=== PATIENT | female | born 1950 | race American Indian/Alaskan Native ===

== ENCOUNTER 2021-09-23 18:23 | Emergency (ER) | payer MEDICARE ==
--- NOTE | 2021-09-23 18:29 | Emergency Department Report ---
ED Neuro Deficit HPI - General Stated Complaint: STROKE Time Seen by Provider: 09/23/21 18:23 - History of Present Illness Initial Comments: Patient was brought in by EMS for possible stroke alert. Patient was last seen by her son at 1300 hrs. She was found in the floor at 1730 hrs. EMS was called and the patient was transported here. They noted the patient was altered with aphasia as well as right hemiparesis. She was taken immediately to CT upon arrival. History is obtained primarily from EMS as the son is not present. There was no known injury. Once the son arrived, he does provide history. He had seen the patient and they had breakfast together around 10 or 11 this morning. She had gone back to her room because the heat is out in the house intermittently. She has been using an electric space heater. He spoke with her between 1313 30 hours. She was at baseline at that point. He went out for a walk. He came back again at 1730 and yelled for her. There was no response. He went and and found her at that time unresponsive on the floor. He actually states that she was responsive, just not normal. - Related Data Home Medications: Home Medications Medication Instructions Recorded Confirmed Last Taken Cholecalciferol Vit D3 [Vitamin D3 1,000 unit PO QDAY 09/23/21 09/23/21 Unknown 1,000 UNIT TAB] Metformin HCl [Metformin HCl ER] 750 mg PO BID 09/23/21 09/23/21 Unknown Pravastatin Sodium [Pravastatin] 40 mg PO QHS 09/23/21 09/23/21 Unknown Turmeric Root Extract [Turmeric] 1,000 mg PO QDAY 09/23/21 09/23/21 Unknown atenoloL [Tenormin] 50 mg PO DAILY 09/23/21 09/23/21 Unknown Allergies/Adverse Reactions: Allergies Allergy/AdvReac Type Severity Reaction Status Date / Time No Known Allergies Allergy Verified 09/23/21 19:18 ED Review of Systems ROS: Stated complaint: STROKE Other details as noted in HPI Comment: Unobtainable due to pts medical conditions (Dysarthria and aphasia) ED Past Medical Hx - Past Medical History Hx Hypertension: Yes - Family History Family history: other (Patient's mother of a stroke at 76) - Medications Home Medications: Home Medications Medication Instructions Recorded Confirmed Last Taken Type Cholecalciferol Vit D3 [Vitamin D3 1,000 unit PO QDAY 09/23/21 09/23/21 Unknown History 1,000 UNIT TAB] Metformin HCl [Metformin HCl ER] 750 mg PO BID 09/23/21 09/23/21 Unknown History Pravastatin Sodium [Pravastatin] 40 mg PO QHS 09/23/21 09/23/21 Unknown History Turmeric Root Extract [Turmeric] 1,000 mg PO QDAY 09/23/21 09/23/21 Unknown History atenoloL [Tenormin] 50 mg PO DAILY 09/23/21 09/23/21 Unknown History ED Neuro Physical Exam - General Limitations: Physical Limitation (Stroke), Other General appearance: alert, in no apparent distress, obese Suspected Stroke: Yes - Head Head exam: Present: atraumatic, other (Right facial droop) - Eye Eye exam: Present: normal appearance, EOMI. Absent: scleral icterus - ENT ENT exam: Present: mucous membranes dry, normal external ear exam - Neck Neck exam: Present: normal inspection. Absent: meningismus - Respiratory Respiratory exam: Present: normal lung sounds bilaterally. Absent: respiratory distress - Cardiovascular Cardiovascular Exam: Present: regular rate, normal rhythm - GI/Abdominal GI/Abdominal exam: Present: soft. Absent: distended, pulsatile mass - Extremities Exam Extremities exam: Present: normal capillary refill, pedal edema (2+) - Back Exam Back exam: Absent: CVA tenderness (R), CVA tenderness (L) - Neurological Exam Neurological exam: Present: alert, other (Acute stroke suspected) - NIHSS Assessment Interval: Baseline 1a. Level of Consciousness: alert/keenly responsive 1b. LOC Questions: aphasic 1c. LOC Commands: performs 1 task correctly 2. Best Gaze: partial gaze palsy 3. Visual: no visual loss 4. Facial Palsy: unilateral complete paralysis 5b. Motor Arm Right: no movement 5a. Motor Arm Left: no drift 6a. Motor Leg Left: no movement 6b. Motor Leg Right: no drift 7. Limb Ataxia: absent 8. Sensory: severe/total sensory loss 9. Best Language: mild/moderate aphasia 10. Dysarthria: mild/moderate dysarthria 11. Extinction/Inattention: no abnormality Total Score: 19 Stroke Severity: Moderate to Severe Stroke - Psychiatric Psychiatric exam: Present: normal mood - Skin Skin exam: Present: warm, dry ED Course Vital Signs 09/23/21 09/23/21 09/23/21 19:05 19:06 19:09 Temperature 98.7 F Pulse Rate 50 L 50 L Respiratory 15 13 16 Rate Blood Pressure 165/114 [Left] O2 Sat by Pulse 92 98 96 Oximetry - Reevaluation(s) Reevaluation #1: 09/23/21 18:20 EMS was met. Patient was taken urgently to CT. We are outside of any window for intravenous tPA. Patient would still meet criteria for intervention and clot retrieval. Teleneurology verbally reported to the nursing staff that they would discuss the case after the CT. Reevaluation #2: 09/23/21 18:50 CT scan was reviewed. Case was discussed with the neurologist. It was agreed that we should look at transfer for neuro intervention. Reevaluation #3: 09/23/21 19:46 Case was discussed with neurology at [facility]. They requested the images be sent to their PACS system. They will review the images and return call. Radiology was notified. Reevaluation #4: 09/23/21 20:37 Ultimately, patient was transferred to flight due to [facility]. - Lab Data Result diagrams: 09/23/21 18:44 09/23/21 18:44 Lab Results 09/23/21 09/23/21 09/23/21 Range/Units 18:44 18:44 18:44 WBC 11.2 H (4.5-11.0) K/mm3 RBC 3.87 (3.65-5.03) M/mm3 Hgb 11.0 (10.1-14.3) gm/dl Hct 34.3 (30.3-42.9) % MCV 89 (79-97) fl MCH 29 (28-32) pg MCHC 32 (30-34) % RDW 13.7 (13.2-15.2) % Plt Count 197 (140-440) K/mm3 Lymph % (Auto) 8.5 L (13.4-35.0) % [place] % (Auto) 7.8 H (0.0-7.3) % Eos % (Auto) 0.0 (0.0-4.3) % Baso % (Auto) 0.2 (0.0-1.8) % Lymph # (Auto) 0.9 L (1.2-5.4) K/mm3 [place] # (Auto) 0.8 (0.0-0.8) K/mm3 Eos # (Auto) 0.0 (0.0-0.4) K/mm3 Baso # (Auto) 0.0 (0.0-0.1) K/mm3 Seg Neutrophils % 83.5 H (40.0-70.0) % Seg Neutrophils # 9.1 H (1.8-7.7) K/mm3 PT 15.1 H (12.2-14.9) Sec. INR 1.07 (0.87-1.13) APTT 29.2 (24.2-36.6) Sec. Thrombin Time 16.9 (15.1-19.6) Sec. Sodium 137 (137-145) mmol/L Potassium 4.2 (3.6-5.0) mmol/L Chloride 103.8 (98-107) mmol/L Carbon Dioxide 18 L (22-30) mmol/L Anion Gap 19 mmol/L BUN 21 H (7-17) mg/dL Creatinine 1.7 H (0.6-1.2) mg/dL Estimated GFR 36 ml/min BUN/Creatinine Ratio 12 % Glucose 214 H (65-100) mg/dL POC Glucose (70-105) mg/dL Calcium 9.0 (8.4-10.2) mg/dL Troponin T 1.020 H* (0.00-0.029) ng/mL Triglycerides 90 (2-149) mg/dL Cholesterol 138 (50-199) mg/dL LDL Cholesterol Direct 80 (50-130) mg/dL HDL Cholesterol 51 (40-59) mg/dL Cholesterol/HDL Ratio 2.70 % 09/23/21 Range/Units 19:29 WBC (4.5-11.0) K/mm3 RBC (3.65-5.03) M/mm3 Hgb (10.1-14.3) gm/dl Hct (30.3-42.9) % MCV (79-97) fl MCH (28-32) pg MCHC (30-34) % RDW (13.2-15.2) % Plt Count (140-440) K/mm3 Lymph % (Auto) (13.4-35.0) % [place] % (Auto) (0.0-7.3) % Eos % (Auto) (0.0-4.3) % Baso % (Auto) (0.0-1.8) % Lymph # (Auto) (1.2-5.4) K/mm3 [place] # (Auto) (0.0-0.8) K/mm3 Eos # (Auto) (0.0-0.4) K/mm3 Baso # (Auto) (0.0-0.1) K/mm3 Seg Neutrophils % (40.0-70.0) % Seg Neutrophils # (1.8-7.7) K/mm3 PT (12.2-14.9) Sec. INR (0.87-1.13) APTT (24.2-36.6) Sec. Thrombin Time (15.1-19.6) Sec. Sodium (137-145) mmol/L Potassium (3.6-5.0) mmol/L Chloride (98-107) mmol/L Carbon Dioxide (22-30) mmol/L Anion Gap mmol/L BUN (7-17) mg/dL Creatinine (0.6-1.2) mg/dL Estimated GFR ml/min BUN/Creatinine Ratio % Glucose (65-100) mg/dL POC Glucose 185 H (70-105) mg/dL Calcium (8.4-10.2) mg/dL Troponin T (0.00-0.029) ng/mL Triglycerides (2-149) mg/dL Cholesterol (50-199) mg/dL LDL Cholesterol Direct (50-130) mg/dL HDL Cholesterol (40-59) mg/dL Cholesterol/HDL Ratio % - EKG Data -: EKG Interpreted by Ks EKG shows normal: sinus rhythm Rate: bradycardia 09/23/21 20:38 EKG shows a sinus bradycardia with normal intervals. There is no ST elevation to suggest STEMI. There is no ST depression suggestive of ischemia. - Radiology Data Radiology results: report reviewed - Medical Decision Making Patient presented as a stroke alert. She was out of any kind of window for thr ombolytic therapy but was within the window for consideration of intervention. We did transfer the patient for intervention. There was no evidence of bleed or tumor. There is no visible sign of trauma. Patient did not have any obvious metabolic derangement. Troponin was elevated which can be trended. She did not have EKG changes suggestive of STEMI. Patient did not have anemia or thrombocytopenia. She had evidence of an acute kidney injury and this can be trended as well. We do not know her baseline BUN and creatinine. This could be chronic and stable for the patient. Critical Care Time: Yes (55 minutes exclusive of all procedures) Critical care attestation.: If time is entered above; I have spent that time in minutes in the direct care of this critically ill patient, excluding procedure time. ED Disposition Clinical Impression: Left acute arterial ischemic stroke, MCA (middle cerebral artery), Elevated troponin, Renal insufficiency Disposition: INTERMEDIATE CARE FACILITY Is pt being admited?: No Condition: Stable Referrals: KATARZYNA FALCON [Other] - 3-5 Days
--- NOTE | 2021-09-23 18:54 | Consultation ---
History of Present Illness History of present illness: [facility] Consult Note # Demographics Consult Type: Acute Stroke Level 2 (4.5-24 hrs) Patient Location: Emergency Room First Name: Jael Last Name: Jc Age: 70 Gender: Female Facility: [facility] Time of Initial Page ( Time): 09/23/2021, 18:11 Time of Return Call ( Time): 09/23/2021, 18:11 # HPI History: 70 year-old female presents with aphasia and right-sided weakness. She was last known normal at 1300. # Scores Time of exam and NIHSS ( Time): 09/23/2021, 18:48 Level of Consciousness 1a: [2] = Not alert; requires strong or painful stim LOC Questions 1b: [2] = Answers neither correctly LOC Commands 1c: [2] = Performs neither correctly Best Gaze 2: [1] = Partial gaze palsy Visual 3: [0] = No visual loss Facial Palsy 4: [1] = Minor paralysis Motor Arm Left 5a: [3] = No effort against gravity Motor Arm Right 5b: [3] = No effort against gravity Motor Leg Left 6a: [4] = No movement Motor Leg Right 6b: [4] = No movement Limb Ataxia 7: [0] = Absent Sensory 8: [0] = Normal Best Language 9: [3] = Mute Dysarthria 10: [2] = Severe dysarthria Extinction and Inattention 11: [0] = No abnormality NIHSS Total: 27 # Exam Vitals: vital signs reviewed # Data Head CT: no bleed CTA Head: MCA occlusion # Assessment Impression: Ischemic Stroke (Acute) # Plan Thrombolytic/Intervention: IA Intervention Thrombolytic Exclusion: > 4.5 hours Labs: hemoglobin A1c lipid panel Imaging: (urgency: routine): MRI Brain without contrast Diagnostic Test: echo without bubble study Therapy/Evaluation: NPO until swallow evaluation PT/OT evaluation speech/swallow consultation Medication: aspirin 325 mg daily start statin with goal of LDL < 70 Other: permissive hypertension telemetry monitoring I have discussed my recommendations with the referring provider Disposition: admit
[2021-09-23 19:03] LABS: Hematocrit 34.3 % (30.3-42.9); Mean Corpuscular HGB Conc 32 % (30-34); Mean Corpuscular Volume 89 fl (79-97); Platelet Count 197 K/mm3 (140-440); Red Blood Count 3.87 M/mm3 (3.65-5.03); Red Cell Distribution Width 13.7 % (13.2-15.2)
--- NOTE | 2021-09-23 19:03 | Cat Scan Report ---
CT head/brain wo con INDICATION / CLINICAL INFORMATION: 70 years Female; Stroke symptoms. TECHNIQUE: Routine CT head without contrast. All CT scans at this location are performed using CT dos e reduction for ALARA by means of automated exposure control. COMPARISON: None. FINDINGS: BRAIN / INTRACRANIAL CONTENTS: The motion degrades the image quality. However, there is extensive cer ebral white matter disease most consistent with advanced microvascular angiopathy. However, there jo ann ears to be relative edema on the left which obscures the left ankle capsular region and concerning fo r developing infarct. Additionally, there is relative increased attenuation within the left MCA indic ative of associated thrombus. There is mild cerebral atrophy with associated prominence of the ventricular system. There is no dean s CT evidence of acute intracranial hemorrhage. ORBITS: No significant abnormality of visualized orbits. SINUSES / MASTOIDS: No significant abnormality in the visualized paranasal sinuses or mastoid air flor ls. CRANIOCERVICAL JUNCTION: No significant abnormality. ADDITIONAL FINDINGS: None. IMPRESSION: 1. The study is limited by motion. However, the findings are indicative of edema and evolving infarct within the left gangliocapsular region along with thrombus at within the visualized left MCA as deta iled above. 2. There is otherwise extensive microvascular angiopathy and mild cerebral atrophy. Signer Name: Jerrod Correa MD Signed: 09/23/2021 6:59 PM Workstation Name: [id number]
[2021-09-23 19:15] LABS: INR 1.07 (0.87-1.13)
[2021-09-23 19:16] LABS: Partial Thromboplastin Time 29.2 Sec. (24.2-36.6); Thrombin Time 16.9 Sec. (15.1-19.6)
--- NOTE | 2021-09-23 19:21 | Cat Scan Report ---
CT angio neck INDICATION / CLINICAL INFORMATION: 70 years Female; stroke sx. TECHNIQUE: Thin cut axial images obtained through the head during IV bolus contrast administration. S agittal, coronal, and 3 plane MIP reconstructions performed by the technologist. NASCET type criteria used evaluate stenoses. All CT scans at this location are performed using CT dose reduction for ALAR A by means of automated exposure control. COMPARISON: None available. FINDINGS: CAROTID ARTERIES: The motion and beam hardening significantly degrades the image quality. However, th ere is relative increased attenuation within the left cervical carotid arteries compared to the right carotid as well as the bilateral vertebral arteries. On review of the CTA head, there is note of occ lusion of the distal most cervical left ICA and left MCA any above findings at may reflect relative d ecreased flow within the left cervical carotid arteries with increased density and accumulation of co ntrast. There are not small foci of calcification at the carotid bifurcations without significant foc al stenosis. VERTEBRAL ARTERIES: The proximal vertebral arteries are also obscured by the degree of motion and susana m hardening. However, there is no clear CT evidence of significant focal stenosis. ARCH: There is calcification involving the arch vessels with mild, less than 50% stenosis of the prox imal left subclavian artery. ADDITIONAL FINDINGS: There is a small left pleural effusion. There is a well-circumscribed lesion wit hin the deep left parotid gland measuring 0.7 cm AP by 1.1 cm transverse in greatest dimensions. This finding is nonspecific though may reflect neoplastic process such as pleomorphic adenoma. IMPRESSION: There is relative increase density of contrast within the left cervical carotid arteries which appear s reflect decreased flow given the occlusion of the distal left intracranial ICA on the CTA head. The re are small foci of calcification within the carotid bifurcations without significant stenosis by NA SCET criteria. There is a 0.7 x 1.1 cm well-circumscribed lesion within the left parotid gland as described. Signer Name: Jerrod Correa MD Signed: 09/23/2021 7:16 PM Workstation Name: [id number]
--- NOTE | 2021-09-23 19:26 | Cat Scan Report ---
CT angio head INDICATION / CLINICAL INFORMATION: 70 years Female; stroke sx. TECHNIQUE: Thin cut axial images obtained through the head during IV bolus contrast administration. S agittal, coronal, and 3 plane MIP reconstructions performed by the technologist. NASCET type criteria used evaluate stenoses. Automated exposure control utilized for radiation reduction purposes. COMPARISON: None available. FINDINGS: INTERNAL CAROTID ARTERIES: There is occlusion of the communicating segment of the distal left ICA wit h apparent thrombus extending into the M1 segment of the left MCA. There is relative increased attenu ation within the more proximal segments of the left ICA which appears to reflect accumulation of cont rast and decreased flow compared to the right. There is mild atherosclerotic calcification within the intracranial right ICA without significant foc al stenosis. VERTEBROBASILAR SYSTEM: The vertebrobasilar system demonstrates similar contrast intensity to the rig ht ICA. There is no significant focal stenosis of the vertebrobasilar system. CEREBRAL ARTERIES: Thrombus extends into the M1 segment of the left MCA as well as the proximal most A1 segment of the left OSWALDO. However, collateral of flow is seen within the more distal left MCA branc hes at the trifurcation. Opacification of the more distal left A1 segment also appears be supplied by the anterior communicating artery. There is no further clear CTA evidence of significant focal steno sis involving remaining intracranial vessels. ANEURYSM: None identified. ADDITIONAL FINDINGS: Remainder of the surrounding soft tissues are grossly normal. IMPRESSION: There is occlusion of the communicating segment of the distal left ICA with thrombus extending into t he left MCA and proximal left OSWALDO as detailed above. Collateral flow is seen within the more distal l eft MCA branches at the trifurcation. Signer Name: Jerrod Correa MD Signed: 09/23/2021 7:22 PM Workstation Name: [id number]
[2021-09-23 19:29] LABS: Basophils % (Auto) 0.2 % (0.0-1.8); Lymphocytes # (Auto) 0.9 K/mm3 (1.2-5.4); Lymphocytes % (Auto) 8.5 % (13.4-35.0); Monocytes # (Auto) 0.8 K/mm3 (0.0-0.8); Monocytes % (Auto) 7.8 % (0.0-7.3)
[2021-09-23 20:32] LABS: Chol/HDL Ratio 2.7 %
[2021-09-23 21:19] VITALS: BP 166/83
[2021-09-24 03:59] LABS: Anisocytosis 1+; Basophils % (Manual) 0 % (0.0-1.8); Eosinophils % (Manual) 0 % (0.0-4.3); Platelet Estimate Consistent w Auto; Total Cells Counted 100
--- NOTE | 2021-09-28 13:23 | Electrocardiograph Report ---
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
== END 2021-09-23 21:05 ==
LOC: ED 18:23
DX: I63.89 Other cerebral infarction (principal); G46.0 Middle cerebral artery syndrome; R74.8 Abnormal levels of other serum enzymes; N28.9 Disorder of kidney and ureter, unspecified; I10 Essential (primary) hypertension; Z79.899 Other long term (current) drug therapy
CPT/HCPCS: 36415; 70450; 70496; 70498; 80048; 80061; 82962; 84484; 85007; 85025; 85610; 85670; 85730; 93005; 93010; 99285; Q9967